=== PATIENT | female | born 1995 | race Caucasian/White ===

== ENCOUNTER 2017-01-30 01:24 | Emergency (ER) | payer SELFPAY ==
[~2017-01-30] VITALS: Ht 157.5 cm; Wt 52.6 kg
[2017-01-30 01:25] VITALS: BP 140/97; PULSE 104; RESP 20; TEMP 98.2; O2SAT 99
--- NOTE | 2017-01-30 01:25 | NUR ---
Patient to ER bed 4 to gown for evaluation. Side rails up. Report given to MARTÍN FRANK.
--- NOTE | 2017-01-30 01:40 | NUR ---
Pt brought to ED by mother with c/o generalized body ache 04/29 r/t fibromyalgia. A&Ox4, denies SOB or chestpain, denies N/V/D. Skin intact, ambulatory. Will continue to monitor
--- NOTE | 2017-01-30 01:50 | NUR ---
at bedside examining pt
[2017-01-30] MEDS ORDERED: HYDROcodone/ACETAMIN 7.5-325 MG TAB PO ONE (02:15)
--- NOTE | 2017-01-30 02:26 | NUR ---
Patient given written and verbal discharge instructions and verbalizes understanding. ER MD Browning discussed with patient the results and treatment provided. Patient in stable condition. ID arm band removed. Rx of norco given. Patient educated on pain management and to follow up with PMD. Pain Scale 0/10 Opportunity for questions provided and answered.
[2017-01-30 02:28] VITALS: BP 132/86; PULSE 92; RESP 18; TEMP 98.2; O2SAT 98
== END 2017-01-30 02:26 | disposition home or self-care (01) ==
LOC: SED 01:24
DX: R52 Pain, unspecified (principal)
CPT/HCPCS: 99283